=== PATIENT | male | born 1950 | race Caucasian/White ===

== ENCOUNTER → 2016-08-17 | Outpatient (CLI) | payer BC | END | disposition home or self-care (01) | LOC: GMAB 10:37 | PROVIDERS: ATTEND Family Medicine | DX: Z00.00 Encounter for general adult medical examination without abnormal findings (principal) ==

== ENCOUNTER → 2016-10-07 | Outpatient (CLI) | payer BC | END | disposition home or self-care (01) | LOC: GMAB 16:10 | PROVIDERS: ATTEND Family Medicine | DX: R97.20 Elevated prostate specific antigen [PSA] (principal) ==

== ENCOUNTER → 2017-09-15 | Outpatient (CLI) | payer BC | LOC: GMAB 10:31 | PROVIDERS: ATTEND Family Medicine | DX: Z00.00 Encounter for general adult medical examination without abnormal findings (principal) ==

== ENCOUNTER → 2018-12-19 | Outpatient (CLI) | payer BC | LOC: LAB.O 08:51 | PROVIDERS: ATTEND Family Medicine | DX: Z00.00 Encounter for general adult medical examination without abnormal findings (principal); Z13.220 Encounter for screening for lipoid disorders; R97.20 Elevated prostate specific antigen [PSA] ==

== ENCOUNTER → 2019-01-10 | Outpatient (CLI) | payer BC ==
--- NOTE | 2019-01-10 09:52 | RAD ---
EXAM DESCRIPTION: Ankle,Right 3 Views (accession [id number]), Foot,Right 3 Views (accession [id number]): CR/DR/XR CLINICAL HISTORY: 68 years Male Pain in right foot COMPARISON: Right foot radiographs 09/02/2014 TECHNIQUE: 3 VIEWS right foot and right ankle AP. Lateral. Oblique. FINDINGS: Soft tissue swelling medial and lateral ankle also anterior and posterior ankle and dorsum of the midfoot. Overall bone density slightly decreased. 4 mm plantar calcaneal spur. Ankle mortise is congruent. Minimal narrowing of the posterior subtalar joint. Deformity of the distal proximal phalanx right great toe with arthrosis in the IP joint. This has progressed slightly since prior study 2014. Minimal narrowing of the IP joints. No fracture line or displaced fractures in the foot or ankle. No abnormal radiodense objects in the soft tissues or joint spaces. IMPRESSION: 1. Soft tissue swelling around right midfoot and right ankle. Plantar calcaneal spur. 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 2. Deformity of the distal aspect of the proximal phalanx of the right great toe and arthrosis in the IP joint which has progressed since the prior study. Overall bone density slightly decreased. 3. If stress fracture is suspected, consider MRI scan for further evaluation. Electronically signed by: Tito Murray MD 01/10/2019 9:50 AM CDT
--- NOTE | 2019-01-10 09:53 | RAD ---
EXAM DESCRIPTION: Ankle,Right 3 Views (accession [id number]), Foot,Right 3 Views (accession [id number]): CR/DR/XR CLINICAL HISTORY: 68 years Male Pain in right foot COMPARISON: Right foot radiographs 09/02/2014 TECHNIQUE: 3 VIEWS right foot and right ankle AP. Lateral. Oblique. FINDINGS: Soft tissue swelling medial and lateral ankle also anterior and posterior ankle and dorsum of the midfoot. Overall bone density slightly decreased. 4 mm plantar calcaneal spur. Ankle mortise is congruent. Minimal narrowing of the posterior subtalar joint. Deformity of the distal proximal phalanx right great toe with arthrosis in the IP joint. This has progressed slightly since prior study 2014. Minimal narrowing of the IP joints. No fracture line or displaced fractures in the foot or ankle. No abnormal radiodense objects in the soft tissues or joint spaces. IMPRESSION: 1. Soft tissue swelling around right midfoot and right ankle. Plantar calcaneal spur. 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 2. Deformity of the distal aspect of the proximal phalanx of the right great toe and arthrosis in the IP joint which has progressed since the prior study. Overall bone density slightly decreased. 3. If stress fracture is suspected, consider MRI scan for further evaluation. Electronically signed by: Tito Murray MD 01/10/2019 9:50 AM CDT
--- NOTE | 2019-01-10 12:27 | US ---
EXAM DESCRIPTION: Venous,Lower Extremity RT: ULTRASOUND. CLINICAL HISTORY: Edema of lower extremity. Swelling of right ankle and foot. COMPARISON: Right ankle and foot radiographs on this visit. TECHNIQUE: Johnson-scale and doppler sonographic evaluation of the deep venous system of the right lower extremity. FINDINGS: Doppler evaluation shows normal color flow and normal phasicity and augmentation of the right common femoral vein, femoral vein, popliteal vein, greater saphenous vein, and peroneal, vein. These right lower extremity deep veins were completely compressible; normal occlusion with transducer pressure. Johnson-scale survey showed no echogenic thrombus within these veins. In the right posterior tibial vein, blood flow seen only in the artery. The vein is distended with echogenic thrombus. No venous phasic flow and no venous augmentation spike. The vein is not compressible with the transducer but is tender. IMPRESSION: 1. Duplex ultrasound evaluation of the right lower extremity deep venous system showing thrombosis in the right posterior tibial vein. 2. The remaining deep veins of the right lower extremity are unremarkable. CRITICAL COMMUNICATION: The critical value was discussed directly by phone with Dr. Gume Duckworth, by the key punch teacher, Ms. Angeles Solis RDMS (V), at approximately 1200 hours, on January 10, 2019. Electronically signed by: Tito Murray MD 01/10/2019 12:25 PM CDT
== END ==
LOC: RAD 09:17
PROVIDERS: ATTEND Family Medicine
DX: I82.441 Acute embolism and thrombosis of right tibial vein (principal); M19.071 Primary osteoarthritis, right ankle and foot; M77.31 Calcaneal spur, right foot; M20.61 Acquired deformities of toe(s), unspecified, right foot